=== PATIENT | female | born 1990 | race Hispanic/Latino ===

== ENCOUNTER 2018-11-28 09:22 | Outpatient (CLI) | payer OTHER ==
--- NOTE | 2018-11-28 09:55 | RAD ---
EXAM: Two views chest PROVIDED CLINICAL HISTORY: Chest pain upon breathing. COMPARISON: None FINDINGS: Cardiac silhouette and pulmonary vasculature are within normal limits. Nodular densities overlie eac h lung base most compatible with overlying nipple shadows. The lungs are otherwise clear. The osseous structures have a normal appearance. IMPRESSION: No acute cardiopulmonary process.
== END 2018-11-28 09:23 | disposition home or self-care (01) ==
LOC: BICRAD 09:22
PROVIDERS: ATTEND Family Medicine
DX: R07.1 Chest pain on breathing (principal); R10.12 Left upper quadrant pain; R63.4 Abnormal weight loss
CPT/HCPCS: 36415; 71046; 80053; 80061; 82306; 82607; 82746; 84439; 84443; 85025

== ENCOUNTER 2018-11-30 10:11 | Outpatient (CLI) | payer OTHER ==
--- NOTE | 2018-11-30 11:41 | RAD ---
EXAM: XR UGI Air Contrast PROVIDED CLINICAL HISTORY: Left upper quadrant abdominal pain. COMPARISON: None FINDINGS: A double contrast upper GI was performed in usual fashion. Esophagus has a normal appearance without evidence of a mucosal irregularity. Normal esophageal peristalsis was demonstrated during the exam. Minimal extrinsic compression is seen on the posterior cervical esophagus likely due to a prominent c ricopharyngeus muscle impression. There is no evidence of a hiatal hernia, and no gastroesophageal reflux was demonstrated during the e xam. The stomach, duodenal bulb, duodenum, and visualized proximal small bowel have a normal appearance. [employer] Coordinator AP view of the abdomen demonstrates a nonspecific bowel gas pattern. A T-shaped intrauterine co ntraceptive device overlies the pelvis. Rounded metallic density also overlies the pelvis related to overlying clothing. IMPRESSION: Normal upper GI.
--- NOTE | 2018-11-30 12:30 | RAD ---
TWO VIEW CHEST: COMPARISON: 11/28/2018. CLINICAL HISTORY: Chest on breathing. FINDINGS: Lungs remain clear. No effusion or discrete pneumothorax. Cardiac silhouette is normal in size. IMPRESSION: Stable chest, without focal consolidation. POS: C
== END 2018-11-30 10:12 | disposition home or self-care (01) ==
LOC: RAD 10:11
PROVIDERS: ATTEND Family Medicine
DX: R10.12 Left upper quadrant pain (principal)
CPT/HCPCS: 71046; 74247

== ENCOUNTER 2024-10-23 13:17 | Emergency (ER) | payer SELFPAY ==
[~2024-10-23 13:17] MED LIST: Iopamidol-370 76% 500 ML MDV (1 ML CHARGE) ONE
[2024-10-23 13:47] LABS: #Basophils Less than 0.03 10x3/uL (0.0-0.2); #Eosinophils 0.07 10x3/uL (0.0-0.7); #Monocytes 0.41 10x3/uL (0.11-0.59); #Neutrophils 3.61 10x3/uL (1.40-6.50); %Basophils 0.4 % (0.0-1.0); %Eosinophils 1.3 % (0.0-10.0); %Lymphocytes 25.9 % (21.0-51.0); %Monocytes 7.4 % (0.0-10.0); %Neutrophils 64.6 % (42.0-75.0); Hematocrit 41.4 % (36.0-47.0); Hemoglobin 13.7 g/dL (12.0-16.0); Mean Corpuscular Hemoglobin 30.1 pg (27.0-31.0); Mean Corpuscular Volume 91.0 fL (78.0-98.0); Platelet Count 227 10x3/uL (130-400); Red Blood Cell (RBC) Count 4.55 mill/uL (4.20-5.40); White Blood Cell (WBC) Count 5.57 10x3/uL (4.8-10.8)
[2024-10-23 14:08] LABS: BHCG - Serum Negative (NEGATIVE); Pregs Control Background? CLEAR/WHITE (CLR/WHITE); Pregs Control Bar Appear? YES (CONTROL BAR)
[2024-10-23 14:16] LABS: CAUTI Indications for Culture Pelvic or flank pain; Glucose, Urine (Dipstick) Normal (Negative); Leukocyte 25 Leu/uL (Negative); Protein, Urine (Dipstick) Negative (Neg-Trace); RBC/HPF 0-3 HPF (0-3); Specific Gravity, Urine 1.008 (1.002-1.036)
[2024-10-23 14:19] LABS: Bacteria/HPF 1+ HPF (None Seen); Urine Culture Reflex No No
[2024-10-23 14:20] LABS: ALT (SGPT) 17 U/L (Less than 34); AST (SGOT) 23 U/L (11-34); Albumin 4.8 g/dL (3.1-4.5); Alkaline Phosphatase 80 U/L (40-110); Anion Gap 14 mmol/L (10-20); BUN (Urea Nitrogen) 7 mg/dL (7.0-18.7); Bilirubin, Total 0.6 mg/dL (0.3-1.2); Calc. Creatinine Clearance 0 mL/min (70-130); Calcium 9.6 mg/dL (7.8-10.44); Carbon Dioxide 25 mmol/L (22-29); Chloride 107 mmol/L (98-107); Globulin 2.8 g/dL (2.4-3.5); Glucose 79 mg/dL (70-105); Lipase 37 U/L (8-78); Potassium 3.9 mmol/L (3.5-5.1); Sodium 142 mmol/L (136-145)
[2024-10-23] MEDS ORDERED: Ketorolac Tromethamine 30 MG (1 mL) VIAL ONE (16:16)
== END 2024-10-23 17:15 | disposition home or self-care (01) ==
LOC: ERS 13:17
DX: N39.0 Urinary tract infection, site not specified (principal)
CPT/HCPCS: 36415; 74177; 80053; 81001; 83690; 84703; 85025; 93005; 96374; J1885; Q9967